=== PATIENT | male | born 1990 | race Hispanic/Latino ===

== ENCOUNTER 2018-11-12 12:06 | Emergency (ER) | payer OTHER ==
[2018-11-12 12:10] VITALS: BMI 29.8
[2018-11-12 12:24] VITALS: RESP 16; TEMP 98.1
[2018-11-12] MEDS ORDERED: Sodium Chloride 0.9% 500 ML IV STA (12:46)
--- NOTE | 2018-11-12 12:47 | ED PDOC ---
Arrival/HPI - General Chief Complaint: Dizziness/Lightheaded Historian: Patient - History of Present Illness Narrative History of Present Illness (Text): 11/12/18 12:48 A 28 year old male, with no significant past medical history, who presents to the ED complaining of intermittent lightheadedness for the past week. Patient reports the symptoms are associated with feeling like he is going to faint. Patient also reports associated nervousness, anxiousness, and panic, which prompted him to present to the ED for a checkup. Patient believes symptoms are related to his recently increased busy work schedule, as he reports not having the time to eat anything for 12 hours after having breakfast. Patient states he works out after work, without eating anything prior except for having a pre- workout caffeine drink. Patient notes he is a light smoker, and an occasional drinker, but denies any drug usage. Patient also denies any fevers, chills, headache, chest pain, shortness of breath, dyspnea on exertion, palpitations, cough, abdominal pain, nausea, vomiting, diaphoresis, diarrhea, back pain, neck pain, urinary/bowel changes, or any other complaints. Time/Duration: 1 week Symptom Onset: Gradual Symptom Course: Intermittent Activities at Onset: Light Context: Home Past Medical History - Provider Review Nursing Documentation Reviewed: Yes - Infectious Disease Hx of Infectious Diseases: None - Psychiatric Hx Substance Use: No Family/Social History - Physician Review Nursing Documentation Reviewed: Yes Family/Social History: Unknown Family HX Smoking Status: Never Smoked Hx Alcohol Use: No Hx Substance Use: No Allergies/Home Meds Allergies/Adverse Reactions: Allergies No Known Allergies Allergy (Verified 11/12/18 12:09) Review of Systems - Physician Review All systems were reviewed & negative as marked: Yes - Review of Systems Constitutional: absent: Fevers Eyes: absent: Vision Changes ENT: absent: Hearing Changes Respiratory: absent: SOB, Cough Cardiovascular: absent: Chest Pain, Palpitations Gastrointestinal: absent: Abdominal Pain, Diarrhea, Nausea, Vomiting Genitourinary Male: absent: Dysuria, Hematuria Musculoskeletal: absent: Back Pain, Neck Pain Skin: absent: Rash Neurological: Other (lightheadedness). absent: Headache Endocrine: absent: Diaphoresis Hemo/Lymphatic: absent: Adenopathy, Easy Bleeding Psychiatric: absent: Anxiety, Depression Physical Exam Vital Signs Temp Pulse Resp BP Pulse Ox 11/12/18 12:22 98.1 F 84 16 147/73 98 Temperature: Afebrile Blood Pressure: Normal Pulse: Regular Respiratory Rate: Normal Appearance: Positive for: Well-Appearing, Non-Toxic, Comfortable Pain Distress: None Mental Status: Positive for: Alert and Oriented X 3 Finger Stick Blood Glucose: 102 - Systems Exam Head: Present: Atraumatic, Normocephalic Pupils: Present: PERRL Extroacular Muscles: Present: EOMI Conjunctiva: Present: Normal Ears: Present: NORMAL TM, Normal Canal. No: Erythema, TM Bulging Mouth: Present: Moist Mucous Membranes Pharnyx: No: ERYTHEMA, EXUDATE, TONSILS ENLARGED Neck: Present: Normal Range of Motion Respiratory/Chest: Present: Clear to Auscultation, Good Air Exchange. No: Respiratory Distress, Accessory Muscle Use Cardiovascular: Present: Regular Rate and Rhythm, Normal S1, S2. No: Murmurs Abdomen: No: Tenderness, Distention, Peritoneal Signs, Rebound, Guarding Upper Extremity: Present: Normal Inspection. No: Cyanosis, Edema Lower Extremity: Present: Normal Inspection. No: Edema Neurological: Present: GCS=15, CN II-XII Intact, Speech Normal, Motor Func Grossly Intact, Normal Sensory Function, Normal Cerebellar Funct, Gait Normal Skin: Present: Warm, Dry, Normal Color. No: Rashes Psychiatric: Present: Alert, Oriented x 3, Normal Insight, Normal Concentration Medical Decision Making ED Course and Treatment: 11/12/18 13:04 Impression: A 28 year old male who presents to the ED for lightheadedness. Plan: -- CT head w/o contrast -- EKG -- Labs -- Chest X-Ray -- IV Fluids -- Urinalysis -- Reassess and disposition Prior Visits: Notes and results from previous visits were reviewed. Progress Notes: 11/12/18 14:11 EKG shows normal sinus rhythm with a sinus arrhythmia rate approximately [address] or T wave changes. - RAD Interpretation Radiology Orders: CT scan of the head is read by the radiologist shows no acute findings. X-ray chest one view as read by the radiologist is unremarkable. Sight Effects Specialist: Radiologist - Scribe Statement The provider has reviewed the documentation as recorded by the Rosa Carrillo Provider Scribe Attestation: All medical record entries made by the Scribe were at my direction and personally dictated by me. I have reviewed the chart and agree that the record accurately reflects my personal performance of the history, physical exam, medical decision making, and the department course for this patient. I have also personally directed, reviewed, and agree with the discharge instructions and disposition. Disposition/Present on Arrival - Present on Arrival Any Indicators Present on Arrival: No History of DVT/PE: No History of Uncontrolled Diabetes: No Urinary Catheter: No History of Decub. Ulcer: No History Surgical Site Infection Following: None - Disposition Have Diagnosis and Disposition been Completed?: Yes Diagnosis: Near syncope, Hypokalemia, Anxiety Disposition: HOME/ ROUTINE Disposition Time: 14:13 Patient Plan: Discharge Condition: GOOD Discharge Instructions (ExitCare): Hypokalemia, High Potassium Diet, Anxiety, Adult (DC), Near Fainting (DC) Additional Instructions: Must eat during the day. Follow-up with PMD. Follow-up in ER as needed. Forms: [facility] (Sinhala), WORK NOTE
--- NOTE | 2018-11-12 13:08 | RAD ---
Date of service: 11/12/2018 HISTORY: syncope COMPARISON: No prior. TECHNIQUE: 1 view obtained. FINDINGS: LUNGS: No active pulmonary disease. PLEURA: No significant pleural effusion identified, no pneumothorax apparent. CARDIOVASCULAR: No aortic atherosclerotic calcification present. Normal cardiac size. No pulmonary vascular congestion. OSSEOUS STRUCTURES: No significant abnormalities. VISUALIZED UPPER ABDOMEN: Normal. OTHER FINDINGS: None. IMPRESSION: No active disease.
[2018-11-12 13:14] LABS: BASO # 0.02 K/mm3 (0.0-2.0); BASO % 0.3 % (0.0-3.0); EOS # 0.1 (0.0-0.7); EOS % 0.8 % (1.5-5.0); HEMOGLOBIN 15.7 g/dL (14.0-18.0); LYMPH # 2.4 (1.2-3.4); LYMPH % 33.9 % (22.0-35.0); MEAN CELL VOLUME 87.2 fl (80.0-105.0); MEAN CORPUSCULAR HEMOGLOBIN 29.6 pg (25.0-35.0); MEAN PLATELET VOLUME 11.1 fl (7.0-11.0); MONO # 0.4 (0.1-0.6); RBC 5.3 10^6/uL (3.5-6.1); RED CELL DISTRIBUTION WIDTH 12.2 % (11.5-14.5); WHITE BLOOD COUNT 7.1 10^3/uL (4.5-11.0)
[2018-11-12 13:15] LABS: ALB/GLOB RATIO 1.4 (1.1-1.8); ALBUMIN 4.8 g/dL (3.0-4.8); ALT/SGPT 58 U/L (7-56); AST/SGOT 54 U/L (17-59); BLOOD UREA NITROGEN 17 mg/dL (7-21); CALCIUM 9.9 mg/dL (8.4-10.5); GFR NON-AFRICAN AMERICAN > 60
[2018-11-12 13:25] LABS: TROPONIN I < 0.01 ng/mL
[2018-11-12 13:31] LABS: URINE BILIRUBIN NEGATIVE (NEGATIVE); URINE BLOOD NEGATIVE (NEGATIVE); URINE GLUCOSE (UA) NEGATIVE (NEGATIVE); URINE LEUKOCYTE ESTERASE NEGATIVE Leu/uL (NEGATIVE); URINE PROTEIN NEGATIVE mg/dL (<30 mg/dL); URINE UROBILINOGEN 0.2 E.U./dL (<1 E.U./dL)
[2018-11-12 13:36] LABS: CK-MB 1.7 ng/mL (0.0-3.6)
--- NOTE | 2018-11-12 13:36 | CT ---
Date of service: 11/12/2018 PROCEDURE: CT HEAD WITHOUT CONTRAST. HISTORY: syncope COMPARISON: None available. TECHNIQUE: Axial computed tomography images were obtained through the head/brain without intravenous contrast. Radiation dose: Total exam DLP = 1183.28 mGy-cm. This CT exam was performed using one or more of the following dose reduction techniques: Automated exposure control, adjustment of the mA and/or kV according to patient size, and/or use of iterative reconstruction technique. FINDINGS: HEMORRHAGE: No intracranial hemorrhage. BRAIN: No mass effect or edema. No atrophy or chronic microvascular ischemic changes. VENTRICLES: Unremarkable. No hydrocephalus. CALVARIUM: Unremarkable. PARANASAL SINUSES: Unremarkable as visualized. No significant inflammatory changes. MASTOID AIR CELLS: Unremarkable as visualized. No inflammatory changes. OTHER FINDINGS: None. IMPRESSION: Normal CT of the Head.
[2018-11-12 13:38] LABS: URINE APPEARANCE CLEAR (CLEAR); URINE COLOR LIGHT YELLOW (YELLOW)
[2018-11-12 14:12] LABS: BARBITURATES, UR NEGATIVE (NEGATIVE); BENZODIAZEPINES, UR NEGATIVE (NEGATIVE); OPIATES, UR NEGATIVE (NEGATIVE); PHENCYCLIDINE, UR NEGATIVE (NEGATIVE)
[2018-11-12] MEDS ORDERED: Potassium Chloride 10 mEq ER Tab PO STA (14:12)
[2018-11-12 14:27] VITALS: BP 136/72; PULSE 85; O2SAT 99
--- NOTE | 2018-11-12 15:32 | CARD ---
APPROVED REPORT Date of service: 11/12/2018 EKG Measurement Heart [id number] <Conclusion> Sinus rhythm with marked sinus arrhythmia Otherwise normal ECG
== END 2018-11-12 14:53 | disposition home or self-care (01) ==
LOC: ED 12:06
DX: R55 Syncope and collapse (principal); E87.6 Hypokalemia; F41.9 Anxiety disorder, unspecified
CPT/HCPCS: 70450; 71045; 80053; 80320; 80324; 80345; 80346; 80349; 80353; 80358; 80361; 81003; 82550; 82553; 83615; 83735; 83992; 84443; 84484; 85025; 93005; 96360; 99285; J7040